=== PATIENT | male | born 1980 | race Hispanic/Latino ===

== ENCOUNTER 2018-11-30 23:23 | Emergency (ER) | payer SELFPAY ==
[2018-11-30 23:45] VITALS: BP 128/79; RESP 18; TEMP 98.1
--- NOTE | 2018-12-01 00:04 | ED PDOC ---
Arrival/HPI - General Chief Complaint: High Blood Pressure Time Seen by Provider: 11/30/18 23:25 Historian: Patient, Parent - History of Present Illness Narrative History of Present Illness (Text): 12/01/18 00:00 38-year-old male presents today with concerns for elevated blood pressure. Patient states while he was at home he started to feel a little anxious checked his blood pressure and found that it was elevated. Patient states he also noticed that his heart rate was a little high at the time. patient states he felt like his heart started racing and he felt flushed. Patient states his mother told him he was just having some anxiety but he states he wanted to come into the emergency room for evaluation. Patient denies chest pain or shortness of breath. He denies fevers or chills. Patient states he does have some anxiety and he has been struggling since he has been out of work for a while now. Patient denies suicidal or homicidal ideation with no abdominal pain. No nausea or vomiting. Patient states in the emergency room all symptoms have resolved and he is feeling much better. Past Medical History - Provider Review Nursing Documentation Reviewed: Yes - Travel History Have you recently traveled outside [place] w/in the past 3 mons?: No - Psychiatric Hx Substance Use: No Family/Social History - Physician Review Nursing Documentation Reviewed: Yes Family/Social History: Unknown Family HX Smoking Status: Never Smoked Hx Alcohol Use: No Hx Substance Use: No Allergies/Home Meds Allergies/Adverse Reactions: Allergies No Known Allergies Allergy (Verified 11/30/18 23:39) Review of Systems - Review of Systems Constitutional: absent: Fatigue, Fevers Respiratory: absent: SOB, Cough Cardiovascular: Palpitations. absent: Chest Pain Gastrointestinal: absent: Abdominal Pain, Constipation, Diarrhea, Nausea, Vomiting Genitourinary Male: absent: Dysuria, Frequency, Hematuria Musculoskeletal: absent: Arthralgias, Back Pain, Neck Pain Skin: absent: Rash, Pruritis Neurological: absent: Headache, Dizziness Psychiatric: absent: Anxiety, Depression, Suicidal Ideation Physical Exam Vital Signs Reviewed: Yes Vital Signs Temp Pulse Resp BP Pulse Ox 11/30/18 23:45 98.1 F 102 H 18 128/79 96 Temperature: Afebrile Blood Pressure: Normal Pulse: Tachycardic Respiratory Rate: Normal Appearance: Positive for: Well-Appearing, Non-Toxic, Comfortable Pain Distress: None Mental Status: Positive for: Alert and Oriented X 3, other (anxious) - Systems Exam Head: Present: Atraumatic Mouth: Present: Moist Mucous Membranes Neck: Present: Normal Range of Motion Respiratory/Chest: Present: Clear to Auscultation, Good Air Exchange. No: Respiratory Distress, Accessory Muscle Use Cardiovascular: Present: Regular Rate and Rhythm, Normal S1, S2. No: Murmurs, Tachycardic Abdomen: No: Tenderness, Rebound, Guarding Upper Extremity: Present: Normal ROM Lower Extremity: Present: Normal ROM Neurological: Present: GCS=15, Speech Normal Skin: Present: Warm, Dry, Normal Color. No: Rashes Psychiatric: Present: Alert, Oriented x 3, Anxious Medical Decision Making ED Course and Treatment: 12/01/18 00:02 38yr old male presenting with concerns for elevated blood pressure and anxiety. ekg; Sinus rhythm with sinus arrhythmia at 80 b/m no st elevations. reviewed by dr. king. pt comfortable in er. no cp or sob. vitals stable. not tachycardic. no hypertensive. pt states he is feeling better. states all symptoms have resolved. pt was offered to speak with P[facility] nibbler operator for referral to outpatient pysch but patient refused. cbc; wnl cmp; wnl trop; wnl all results discussed with patient and his mother in depth; pt was advised to f/u with pmd and automobile assembler within the next 2 days. pt was advised to return immediately if symptoms worsen,persist or if new symptoms develop. Patient verbalizes understanding of discharge instructions and need for immediate followup. All aspects of this case were discussed the attending of record. impression; palpitations, possible anxiety increase fluids follow up with the primary care physician within the next 2 days follow up with the automobile assembler within the next 2 days. return immediately if symptoms worsen,persist or if new symptoms develop. Reassessment Condition: Re-examined, Improved Disposition/Present on Arrival - Present on Arrival Any Indicators Present on Arrival: No History of DVT/PE: No History of Uncontrolled Diabetes: No Urinary Catheter: No History of Decub. Ulcer: No History Surgical Site Infection Following: None - Disposition Have Diagnosis and Disposition been Completed?: Yes Diagnosis: Palpitations Disposition: HOME/ ROUTINE Disposition Time: 00:04 Patient Plan: Discharge Patient Problems: Current Active Problems Problem Status Onset Palpitations Acute Condition: GOOD Discharge Instructions (ExitCare): Palpitations (DC) Additional Instructions: increase fluids follow up with the primary care physician within the next 2 days follow up with the automobile assembler within the next 2 days. return immediately if symptoms worsen,persist or if new symptoms develop. Referrals: Estela Gaston MD [Medical Doctor] - Follow up with primary [facility] [Outside] - Follow up with primary [facility] [[facility]] - Follow up with primary Angie Castaneda MD [Staff Provider] - Follow up with primary Forms: [employer] (Filipino)
[2018-12-01 00:20] VITALS: PULSE 69
[2018-12-01 00:58] LABS: BASO # 0.02 K/mm3 (0.0-2.0); BASO % 0.2 % (0.0-3.0); EOS # 0.2 (0.0-0.7); EOS % 1.8 % (1.5-5.0); HEMOGLOBIN 14.1 g/dL (14.0-18.0); LYMPH # 2.3 (1.2-3.4); MEAN CELL VOLUME 88.8 fl (80.0-105.0); MEAN CORPUSCULAR HEMOGLOBIN 29.7 pg (25.0-35.0); MEAN CORPUSCULAR HGB CONC 33.5 g/dl (31.0-37.0); MEAN PLATELET VOLUME 10.7 fl (7.0-11.0); MONO # 0.6 (0.1-0.6); MONO % 5.5 % (1.0-6.0); RBC 4.74 10^6/uL (3.5-6.1); RED CELL DISTRIBUTION WIDTH 13.2 % (11.5-14.5); WHITE BLOOD COUNT 10.9 10^3/uL (4.5-11.0)
[2018-12-01 01:02] LABS: ALB/GLOB RATIO 1.5 (1.1-1.8); ALBUMIN 4.1 g/dL (3.0-4.8); ALT/SGPT 58 U/L (7-56); AST/SGOT 32 U/L (17-59); BLOOD UREA NITROGEN 14 mg/dL (7-21); CALCIUM 9.2 mg/dL (8.4-10.5); GFR NON-AFRICAN AMERICAN > 60
[2018-12-01 01:19] LABS: TROPONIN I < 0.01 ng/mL
[2018-12-01 01:37] VITALS: O2SAT 98
--- NOTE | 2018-12-01 09:56 | CARD ---
APPROVED REPORT Date of service: 12/01/2018 EKG Measurement Heart [id number] <Conclusion> Sinus rhythm with marked sinus arrhythmia-Normal For Young Age. Possible Left atrial enlargement
== END 2018-12-01 01:36 | disposition home or self-care (01) ==
LOC: ED 23:23
DX: R00.2 Palpitations (principal)